=== PATIENT | female | born 2000 | race Two or more races ===

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

== ENCOUNTER 2018-01-08 04:06 | Emergency (ER) | payer OTHER ==
[~2018-01-08] VITALS: Ht 162.6 cm; Wt 60.0 kg
[2018-01-08 04:10] VITALS: BP 116/69
== END 2018-01-08 06:10 | disposition home or self-care (01) ==
LOC: ED 06:00
DX: F10.129 Alcohol abuse with intoxication, unspecified (principal); F41.1 Generalized anxiety disorder; F32.9 Major depressive disorder, single episode, unspecified
CPT/HCPCS: 99283; 99284